=== PATIENT | female | born 1945 | race Caucasian/White ===

== ENCOUNTER 2023-07-21 07:42 | Emergency (ER) | payer MEDICARE ==
[~2023-07-21] VITALS: Ht 162.6 cm; Wt 75.7 kg
[2023-07-21 07:47] VITALS: BP 115/50; PULSE 77; RESP 20; TEMP 97.4; O2SAT 94
[2023-07-21 08:15] VITALS: O2SAT 94
[2023-07-21 09:02] VITALS: BP 125/79; PULSE 74; RESP 17; O2SAT 98
== END 2023-07-21 09:02 | disposition home or self-care (01) ==
LOC: MED 07:42
DX: F41.9 Anxiety disorder, unspecified (principal); I11.0 Hypertensive heart disease with heart failure; E11.9 Type 2 diabetes mellitus without complications; Z79.4 Long term (current) use of insulin; Z79.899 Other long term (current) drug therapy; Z98.890 Other specified postprocedural states
CPT/HCPCS: 93005; 99283